=== PATIENT | male | born 1970 | race Two or more races ===

== ENCOUNTER 2024-05-14 13:32 | Inpatient (IN) | payer MEDICAID, OTHER ==
[~2024-05-14] VITALS: Ht 165.1 cm; Wt 82.5 kg
[2024-05-14 15:25] LABS: Basophils # (auto) 0.1 10 ^3/uL (0-0.2); Eosinophils # (auto) 0.2 10 ^3/uL (0-0.8); Eosinophils % (auto) 3.8 % (0.0-7.0); Hematocrit 43.5 % (41.0-53.0); Hemoglobin 14.8 g/dL (13.5-17.5); Lymphocytes # (auto) 1.9 10 ^3/uL (0.4-5.4); Lymphocytes % (auto) 33.6 % (10.0-50.0); Mean Corpuscular Hemoglobin 28.7 pg (28.0-32.0); Mean Corpuscular Volume 84.4 fL (80.0-100.0); Monocytes # (auto) 0.4 10 ^3/uL (0-1.3); Monocytes % (auto) 6.5 % (0.0-12.0); Neutrophils # (auto) 3.2 10 ^3/uL (1.6-8.6); Neutrophils % (auto) 55.1 % (37.0-80.0); Red Blood Cells 5.15 10^6/uL (4.5-5.90); White Blood Cell 5.7 10^3/uL (4.4-10.8)
[2024-05-14 15:37] LABS: Chloride 103 mmol/L (98-107); Potassium 3.9 mmol/L (3.5-5.1); Sodium 136 mmol/L (136-145)
[2024-05-14 15:38] LABS: Anion Gap 7 (5-15); Calcium 10.3 mg/dL (8.7-10.4); Carbon Dioxide 26 mmol/L (20-30)
[2024-05-14 15:43] LABS: BUN/Creatinine Ratio 19.6 (10.0-20.0); Blood Urea Nitrogen 18 mg/dL (9-23)
[2024-05-14 15:49] LABS: Glucose 431 mg/dL (74-106)
[2024-05-14] MEDS: SODIUM CHLORIDE 0.9% 1,000 ML IV ONE (18:06)
[2024-05-14] MEDS: InsuLIN REG 1unit/0.01ml Soln (100units/ml) IV ONE (18:16)
[2024-05-14 18:17] VITALS: PULSE 89; RESP 14; O2SAT 93
[2024-05-14] MEDS ORDERED: LOSA-534 PO (20:54)
[2024-05-14] MEDS ORDERED: DOCUSATE SOD 100 MG CAP PO PRN (21:00)
[2024-05-14] MEDS ORDERED: ONDANSETRON HCL 4 MG/2 ML VIAL IV PRN (21:00)
[2024-05-14] MEDS ORDERED: ACETAMINOPHEN 325 MG TAB PO PRN (21:00)
[2024-05-14] MEDS ORDERED: DEXTROSE (50%) 50ML SYRG IV PRN (21:00)
[2024-05-14] MEDS ORDERED: HYDROcodone-ACET 5/325MG TAB PO PRN (21:00)
[2024-05-14] MEDS: ACCU-CHEK COMFORT CURVE STRIP VI SCH (22:00)
[2024-05-14] MEDS: InsuLIN REG 1unit/0.01ml Soln (100units/ml) SC SCH ×2 (22:35→23:23)
[2024-05-14] MEDS: SODIUM CHLORIDE 0.9% 1,000 ML IV SCH (23:24)
[2024-05-14 23:35] VITALS: O2SAT 95
[2024-05-15] VITALS (8 sets, daily range): BP systolic 121–156; BP diastolic 74–87; PULSE 69–79; RESP 16–20; TEMP 97.5–97.7; O2SAT 93–97
[2024-05-15] MEDS: InsuLIN REG 1unit/0.01ml Soln (100units/ml) SC SCH (06:34)
[2024-05-15 06:59] LABS: Basophils # (auto) 0.1 10 ^3/uL (0-0.2); Eosinophils # (auto) 0.3 10 ^3/uL (0-0.8); Eosinophils % (auto) 4.1 % (0.0-7.0); Hematocrit 44.1 % (41.0-53.0); Hemoglobin 15.2 g/dL (13.5-17.5); Lymphocytes # (auto) 2.2 10 ^3/uL (0.4-5.4); Lymphocytes % (auto) 33.7 % (10.0-50.0); Mean Corpuscular Hemoglobin 29.3 pg (28.0-32.0); Mean Corpuscular Hgb Conc. 34.5 g/dL (32.0-36.0); Mean Corpuscular Volume 84.9 fL (80.0-100.0); Monocytes # (auto) 0.3 10 ^3/uL (0-1.3); Monocytes % (auto) 5.1 % (0.0-12.0); Neutrophils # (auto) 3.7 10 ^3/uL (1.6-8.6); Neutrophils % (auto) 56.1 % (37.0-80.0); Nucleated Red Blood Cells % 0.1 %; Red Blood Cells 5.19 10^6/uL (4.5-5.90); Red Cell Distribution Width 13.9 % (11.8-14.3); White Blood Cell 6.7 10^3/uL (4.4-10.8)
[2024-05-15 07:23] LABS: Alanine Aminotransferase 21 U/L (7-40); Alkaline Phosphatase 99 U/L (46-116); Anion Gap 8 (5-15); Aspartate Aminotransferase 16 U/L (13-40); BUN/Creatinine Ratio 23.6 (10.0-20.0); Bilirubin, Total 0.6 mg/dL (0.2-1.0); Blood Urea Nitrogen 17 mg/dL (9-23); Calcium 9.3 mg/dL (8.5-10.1); Carbon Dioxide 25 mmol/L (20-30); Chloride 107 mmol/L (98-107); Potassium 3.3 mmol/L (3.5-5.1); Sodium 140 mmol/L (136-145); Total Protein 6.3 g/dL (5.7-8.2)
[2024-05-15 07:24] LABS: Glucose 206 mg/dL (74-106)
[2024-05-15] MEDS: LOSARTAN POTASSIUM 50 MG TAB PO SCH (09:49)
[2024-05-15] MEDS: POTASSIUM CHL 20 Meq TABLET PO ONE (14:24)
[2024-05-15] MEDS: INSULIN LANTUS (GLARGINE) 1 /0.01ml (100units/ml) SC SCH (14:25)
[2024-05-16 01:00] VITALS: BP 143/75; PULSE 66; RESP 22; TEMP 98.1; O2SAT 98
[2024-05-16 05:00] VITALS: BP 145/80; PULSE 68; RESP 22; TEMP 98; O2SAT 99
[2024-05-16 08:00] VITALS: PULSE 69; RESP 20; O2SAT 98
[2024-05-16 09:00] VITALS: BP 155/81; PULSE 69; RESP 20; TEMP 97.4; O2SAT 98
[2024-05-16] MEDS: hydrALAZINE HCL 20 MG/ML VL IV PRN (10:29)
[2024-05-16 13:00] VITALS: BP 146/74; PULSE 64; RESP 16; TEMP 97.5; O2SAT 97
[2024-05-16] MEDS ORDERED: LANC-347 XX (16:34)
[2024-05-16] MEDS ORDERED: BLOO1KIT60 XX (16:34)
[2024-05-16] MEDS ORDERED: INSLANTI SC (16:34)
[2024-05-16 17:00] VITALS: BP_SYST 155; BP_SYST 159; BP_DIAS 81; PULSE 65; RESP 18; TEMP 97.4; O2SAT 97
== END 2024-05-16 18:40 | disposition home or self-care (01) | DRG 420 ==
LOC: ER 13:32 → EAST 20:53 → TELE 20:53 → EAST 22:44
PROVIDERS: ADMIT Nurse Practitioner Family; ATTEND Internal Medicine
DX: E11.65 Type 2 diabetes mellitus with hyperglycemia (principal); E86.0 Dehydration; I10 Essential (primary) hypertension; Z59.7 Insufficient social insurance and welfare support; Z79.4 Long term (current) use of insulin
CPT/HCPCS: 36415; 80048; 80053; 82962; 83036; 85025; G0378; J1815